=== PATIENT | male | born 1945 | race Caucasian/White ===

== ENCOUNTER 2019-04-29 05:26 | Day surgery (SDC) | payer BC, MEDICARE ==
[2019-04-29] MEDS ORDERED: ceFAZolin 2 GM in Premix Bag 1 BAG IV ONE (06:00)
[2019-04-29] MEDS ORDERED: Gabapentin 300 MG Cap PO ONE (06:00)
[2019-04-29] MEDS ORDERED: Acetaminophen 500 MG Tab PO ONE (06:00)
[2019-04-29] MEDS ORDERED: Dextrose 5%-Lactated Ringers 1,000 ML IV SCH (06:00)
[2019-04-29] MEDS ORDERED: Lidocaine 1% with EPINEPHrine 1:100,000 50 ML MDV ONE (06:29)
[2019-04-29] MEDS ORDERED: Bupivacaine 0.5% 50 ML MDV ONE (06:29)
[2019-04-29] MEDS ORDERED: Propofol 200 MG/20 ML SDV ONE (06:50)
[2019-04-29] MEDS ORDERED: fentaNYL 100 MCG/2 ML SDV ONE (06:50)
[2019-04-29] MEDS ORDERED: Midazolam 1 MG/ML 2 ML SDV ONE (06:50)
[2019-04-29] MEDS ORDERED: Ketorolac 60 MG/2 ML SDV ONE (08:21)
[2019-04-29] MEDS ORDERED: Acetaminophen/HYDROcodone 325-5 MG Tab PO PRN (09:21)
[2019-04-29 10:25] VITALS: BP 115/54; PULSE 47
--- NOTE | 2019-05-04 14:56 | OR ---
DATE OF PROCEDURE: 04/29/2019 SURGEON: Nigel Tadeo MD PREOPERATIVE DIAGNOSIS: Right inguinal hernia. POSTOPERATIVE DIAGNOSES: 1. Direct right inguinal hernia. 2. Right ilioinguinal nerve and iliohypogastric nerves at risk for scar entrapment postoperative. OPERATIVE PROCEDURES: Right inguinal exploration with, 1. Repair of right inguinal hernia with mesh plug technique (78487). 2. Excision of a portion of right ilioinguinal nerve (07433). 3. Excision of a portion of right iliohypogastric nerve (97913). ANESTHESIA: Local plus IV sedation. INDICATION FOR PROCEDURE: This is a 73-year-old presenting with increasingly symptomatic right inguinal hernia plan is to proceed with a mesh plug repair potential risks of the procedure including bleeding, infection, injury to underlying viscera, problems with the hernia recurring or the mesh becoming infected were reviewed, and will often divide the nares and the area to avoid problems with a scar entrapment and chronic pain associated with that which will result in an area of cutaneous anesthesia and around the area of the incision was also reviewed with the patient and he wishes to proceed. DETAILS OF PROCEDURE: The patient was taken to the operating room and placed in a supine position. After IV sedation was administered, the abdomen and groin areas were prepped and draped. The right inguinal area was anesthetized with 1% lidocaine mixed with Marcaine and a standard right inguinal incision made and carried down through the skin subcutaneous tissue and through the external oblique aponeurosis. The subaponeurotic flaps were then raised superiorly and inferiorly and the cord structures were mobilized upward. The patient noted to have multiorgan ilioinguinal nerve and iliohypogastric nerves within the field where the flat portion of mesh plug system would be placed and would be at risk for scar entrapment and chronic pain postoperatively given this a portion of each of those nerves was excised with the excision extending out to the far lateral aspect of the incision. The cord was inspected and dissected out. No indirect hernia was identified. The patient did have a fairly broad-based direct hernia as the transversalis fascia overlying this was incised and reflected downward and dissection was continued bluntly underneath the conjoint tendon laterally, superiorly, and inferiorly. An extra large mesh plug was then placed into the defect and affixed to the Barry's ligament with titanium tacking screws and the underside of the conjoint tendon medially, superiorly, and laterally with horizontal mattress sutures of 2-0 Vicryl stitch. At that point, the flat portion of mesh plug system was placed across the inguinal floor. It was affixed to pubic tubercle with a titanium tacking screw and fixed lateral to the cord structures with a 4-0 Vicryl stitch over this and the external oblique aponeurosis was then approximated with some 3-0 Vicryl stitch as was Elizabeth's fascia and the skin was closed with 4-0 Vicryl subcuticular stitch. Dressing was applied. The patient was taken to the recovery room in satisfactory condition. There were no complications. Nigel Tadeo MD /[id number]
== END 2019-04-29 10:53 | disposition home or self-care (01) ==
LOC: JP.SDS 05:26
PROVIDERS: ATTEND Surgery
DX: K40.90 Unilateral inguinal hernia, without obstruction or gangrene, not specified as recurrent (principal); G57.81 Other specified mononeuropathies of right lower limb; Z88.8 Allergy status to other drugs, medicaments and biological substances
CPT/HCPCS: 88302; A9270-GY; C1713; C1781; J0690; J1885; J2250; J2704; J3010; J3490; J7121

== ENCOUNTER 2023-04-08 02:04 | Emergency (ER) | payer BC, MEDICARE ==
[2023-04-08 02:33] VITALS: BP 138/78; PULSE 92
[2023-04-08] MEDS: Albuterol/Ipratropium 3.0-0.5 MG/3 ML Neb Soln NEB ONE (02:51)
[2023-04-08 02:52] LABS: BASOPHILS ABSOLUTE AUTO 0.07 K/uL (0.00-0.10); BASOPHILS PERCENT AUTO 0.6 % (0.1-1.3); EOSINOPHILS ABSOLUTE AUTO 0.61 K/uL (0.00-0.40); HEMATOCRIT 31.7 % (38.4-49.7); HEMOGLOBIN 10.9 g/dL (12.9-16.9); IMMATURE GRAN ABSOLUTE AUTO 0.08 K/uL (0.00-0.23); IMMATURE GRAN PERCENT AUTO 0.7 % (0.0-0.7); LYMPHOCYTES ABSOLUTE AUTO 0.99 K/uL (0.8-3.3); LYMPHOCYTES PERCENT AUTO 8.2 % (11.4-47.7); MEAN CORPUSCULAR HEMOGLOBIN 28.9 pg (31.6-35.5); MEAN CORPUSCULAR HGB CONC 34.4 g/dL (31.6-35.5); MEAN CORPUSCULAR VOLUME 84.1 fL (81.4-99.0); MONOCYTES ABSOLUTE AUTO 1.04 K/uL (0.20-0.90); MONOCYTES PERCENT AUTO 8.6 % (3.3-12.6); NEUTROPHILS ABSOLUTE AUTO 9.32 K/uL (1.0-7.6); NEUTROPHILS PERCENT AUTO 76.9 % (40.0-78.1); PLATELET COUNT,PLT 309 K/uL (130-375); RED BLOOD CELL COUNT 3.77 M/uL (4.14-5.76); WHITE BLOOD CELL COUNT,WBC 12.1 K/uL (3.2-11.0)
[2023-04-08 03:10] LABS: ANION GAP 10.9 mmol/L (5.0-14.0); C-REACTIVE PROTEIN 6.97 mg/dL (<0.50); CALCIUM 8.3 mg/dL (8.5-10.1); EST CRCL DRUG DOSING (CG) 55.52 mL/min; POTASSIUM,K 3.6 mmol/L (3.6-5.2)
== END 2023-04-08 04:16 | disposition home or self-care (01) ==
LOC: JP.ED 02:04
DX: J18.9 Pneumonia, unspecified organism (principal); I10 Essential (primary) hypertension; Z91.048 Other nonmedicinal substance allergy status; Z88.8 Allergy status to other drugs, medicaments and biological substances; E78.00 Pure hypercholesterolemia, unspecified; Z87.891 Personal history of nicotine dependence; Z79.899 Other long term (current) drug therapy; Z79.82 Long term (current) use of aspirin
CPT/HCPCS: 36415; 71046; 71046-26; 80048; 85025; 86140; 94640; 99285; J7620

== ENCOUNTER 2023-05-27 18:15 | Emergency (ER) | payer BC, MEDICARE ==
[2023-05-27 18:56] LABS: BASOPHILS ABSOLUTE AUTO 0.06 K/uL (0.00-0.10); BASOPHILS PERCENT AUTO 0.7 % (0.1-1.3); EOSINOPHILS ABSOLUTE AUTO 0.32 K/uL (0.00-0.40); EOSINOPHILS PERCENT AUTO 3.5 % (0.0-5.4); HEMATOCRIT 32.4 % (38.4-49.7); HEMOGLOBIN 10.9 g/dL (12.9-16.9); IMMATURE GRAN ABSOLUTE AUTO 0.04 K/uL (0.00-0.23); IMMATURE GRAN PERCENT AUTO 0.4 % (0.0-0.7); LYMPHOCYTES ABSOLUTE AUTO 0.99 K/uL (0.8-3.3); LYMPHOCYTES PERCENT AUTO 10.8 % (11.4-47.7); MEAN CORPUSCULAR HEMOGLOBIN 27.6 pg (31.6-35.5); MEAN CORPUSCULAR HGB CONC 33.6 g/dL (31.6-35.5); MONOCYTES ABSOLUTE AUTO 1.11 K/uL (0.20-0.90); MONOCYTES PERCENT AUTO 12.2 % (3.3-12.6); NEUTROPHILS ABSOLUTE AUTO 6.61 K/uL (1.0-7.6); NEUTROPHILS PERCENT AUTO 72.4 % (40.0-78.1); PLATELET COUNT,PLT 281 K/uL (130-375); RED BLOOD CELL COUNT 3.95 M/uL (4.14-5.76); WHITE BLOOD CELL COUNT,WBC 9.1 K/uL (3.2-11.0)
[2023-05-27] MEDS: Sodium Chloride 0.9% 1,000 ML IV ONE (18:59)
[2023-05-27 19:10] LABS: A/G RATIO 0.8 (1.2-2.2); ALANINE AMINOTRANSFERASE,ALT 17 U/L (12-78); ALBUMIN 3.1 g/dL (3.4-5.0); ALKALINE PHOSPHATASE 75 U/L (46-116); ASPARTATE AMNIOTRANSFERASE,AST 20 U/L (15-37); BILIRUBIN TOTAL 0.5 mg/dL (0.2-1.0); BLOOD UREA NITROGEN,BUN 15 mg/dL (7-18); CARBON DIOXIDE,CO2 25 mmol/L (21-32); CHLORIDE,CL 104 mmol/L (100-108); CREATININE 1.1 mg/dL (0.8-1.3); ESTIMATED GFR 70 mL/min (>60); GLUCOSE RANDOM 126 mg/dL (74-106); SODIUM,NA 139 mmol/L (140-148)
[2023-05-27] MEDS: Albuterol/Ipratropium 3.0-0.5 MG/3 ML Neb Soln NEB ONE ×2 (20:05→21:41)
[2023-05-27] MEDS: methylPREDNISolone Sodium Succinate 125 MG/2 ML SDV IVPUSH ONE (20:06)
[2023-05-27 20:39] VITALS: BP 133/58; PULSE 76
== END 2023-05-27 21:53 | disposition home or self-care (01) ==
LOC: JP.ED 18:15
DX: J44.1 Chronic obstructive pulmonary disease with (acute) exacerbation (principal); J18.9 Pneumonia, unspecified organism; E78.00 Pure hypercholesterolemia, unspecified; I10 Essential (primary) hypertension; Z86.19 Personal history of other infectious and parasitic diseases; Z87.891 Personal history of nicotine dependence; Z79.51 Long term (current) use of inhaled steroids; Z79.899 Other long term (current) drug therapy; Z88.8 Allergy status to other drugs, medicaments and biological substances; Z91.048 Other nonmedicinal substance allergy status
CPT/HCPCS: 36415; 71046; 80053; 83605; 85025; 94640; 96361; 96374; 99285; J2930; J7030; J7620

== ENCOUNTER 2024-02-02 15:56 | Inpatient (IN) | payer BC, MEDICARE ==
[2024-02-02 16:55] LABS: BASOPHILS ABSOLUTE AUTO 0.03 K/uL (0.00-0.10); BASOPHILS PERCENT AUTO 0.5 % (0.1-1.3); EOSINOPHILS ABSOLUTE AUTO 0.06 K/uL (0.00-0.40); HEMATOCRIT 35.6 % (38.4-49.7); HEMOGLOBIN 12.1 g/dL (12.9-16.9); IMMATURE GRAN PERCENT AUTO 0.3 % (0.0-0.7); LYMPHOCYTES ABSOLUTE AUTO 0.23 K/uL (0.8-3.3); MEAN CORPUSCULAR HEMOGLOBIN 27.5 pg (31.6-35.5); MEAN CORPUSCULAR VOLUME 80.9 fL (81.4-99.0); MONOCYTES PERCENT AUTO 13.8 % (3.3-12.6); NEUTROPHILS ABSOLUTE AUTO 4.65 K/uL (1.0-7.6); NEUTROPHILS PERCENT AUTO 80.4 % (40.0-78.1); PLATELET COUNT,PLT 138 K/uL (130-375); WHITE BLOOD CELL COUNT,WBC 5.8 K/uL (3.2-11.0)
[2024-02-02 16:57] LABS: IMMATURE GRAN ABSOLUTE AUTO 0.02 K/uL (0.00-0.23)
[2024-02-02 17:16] LABS: A/G RATIO 0.9 (1.2-2.2); ALANINE AMINOTRANSFERASE,ALT 25 U/L (12-78); ALBUMIN 3.4 g/dL (3.4-5.0); ALKALINE PHOSPHATASE 73 U/L (46-116); ASPARTATE AMNIOTRANSFERASE,AST 35 U/L (15-37); BILIRUBIN TOTAL 0.4 mg/dL (0.2-1.0); BLOOD UREA NITROGEN,BUN 15 mg/dL (7-18); C-REACTIVE PROTEIN 2.18 mg/dL (<0.50); CALCIUM 8.5 mg/dL (8.5-10.1); CARBON DIOXIDE,CO2 28 mmol/L (21-32); CHLORIDE,CL 101 mmol/L (100-108); CREATININE 1.2 mg/dL (0.8-1.3); ESTIMATED GFR 63 mL/min (>60); GLUCOSE RANDOM 113 mg/dL (74-106); MAGNESIUM 1.7 mg/dL (1.8-2.4); POTASSIUM,K 4.1 mmol/L (3.6-5.2); PROTEIN TOTAL,TP 7.2 g/dL (6.4-8.2); SODIUM,NA 137 mmol/L (140-148)
[2024-02-02 17:18] LABS: ANION GAP 12.1 mmol/L (5.0-14.0)
[2024-02-02] MEDS: Albuterol/Ipratropium 3.0-0.5 MG/3 ML Neb Soln NEB ONE (17:53)
[2024-02-02] MEDS: methylPREDNISolone Sodium Succinate 125 MG/2 ML SDV IVPUSH ONE (17:53)
[2024-02-02] MEDS: Oseltamivir 75 MG Cap PO SCH (19:16)
[2024-02-02] MEDS ORDERED: oxyCODONE 5 MG Tab PO PRN (20:45)
[2024-02-02] MEDS ORDERED: Albuterol 0.083% 2.5 MG/3 ML Neb Soln NEB PRN (20:45)
[2024-02-02] MEDS ORDERED: Naloxone 0.4 MG/ML SDV IVPUSH PRN (20:45)
[2024-02-02] MEDS ORDERED: Enoxaparin 30 MG/0.3 ML Syringe SUBCUT SCH (20:45)
[2024-02-02] MEDS ORDERED: Gabapentin 100 MG Cap PO PRN (20:45)
[2024-02-02] MEDS ORDERED: LORazepam 2 MG/ML SDV IV PRN (20:45)
[2024-02-02] MEDS ORDERED: Benzonatate 100 MG Cap PO PRN (20:45)
[2024-02-02] MEDS ORDERED: Acetaminophen 325 MG Tab PO PRN (20:45)
[2024-02-02] MEDS: Codeine/guaiFENesin 10-100 MG/5 ML Syrup 5 ML Cup PO PRN (21:16)
[2024-02-02] MEDS: Nicotine 21 MG/24 Hr Patch TOP SCH (21:16)
[2024-02-02] MEDS: Enoxaparin 40 MG/0.4 ML Syringe SUBCUT SCH (21:17)
[2024-02-02] MEDS: Morphine 2 MG/ML SYRINGE IVPUSH PRN (21:17)
[2024-02-02] MEDS: Pantoprazole 40 MG Vial IVPUSH SCH (21:18)
[2024-02-02] MEDS: Sodium Chloride 0.9% 1,000 ML IV SCH (21:33)
[2024-02-03] MEDS: Albuterol/Ipratropium 3.0-0.5 MG/3 ML Neb Soln NEB SCH (00:21)
[2024-02-03] MEDS: methylPREDNISolone Sodium Succinate 40 MG/1 ML SDV IVPUSH SCH (00:23)
[2024-02-03 05:14] LABS: HEMATOCRIT 33.6 % (38.4-49.7); HEMOGLOBIN 11.5 g/dL (12.9-16.9); IMMATURE GRAN PERCENT AUTO 0.2 % (0.0-0.7); LYMPHOCYTES ABSOLUTE AUTO 0.23 K/uL (0.8-3.3); LYMPHOCYTES PERCENT AUTO 5.5 % (11.4-47.7); MEAN CORPUSCULAR HEMOGLOBIN 27.4 pg (31.6-35.5); MEAN CORPUSCULAR HGB CONC 34.2 g/dL (31.6-35.5); MEAN CORPUSCULAR VOLUME 80.2 fL (81.4-99.0); MONOCYTES ABSOLUTE AUTO 0.13 K/uL (0.20-0.90); MONOCYTES PERCENT AUTO 3.1 % (3.3-12.6); NEUTROPHILS ABSOLUTE AUTO 3.79 K/uL (1.0-7.6); NEUTROPHILS PERCENT AUTO 91.2 % (40.0-78.1); PLATELET COUNT,PLT 145 K/uL (130-375); RED BLOOD CELL COUNT 4.19 M/uL (4.14-5.76); WHITE BLOOD CELL COUNT,WBC 4.2 K/uL (3.2-11.0)
[2024-02-03 05:25] LABS: IMMATURE GRAN ABSOLUTE AUTO 0.01 K/uL (0.00-0.23)
[2024-02-03 05:30] LABS: CALCIUM 8.1 mg/dL (8.5-10.1); EST CRCL DRUG DOSING (CG) 52.46 mL/min
[2024-02-03] MEDS: Oseltamivir 75 MG Cap PO SCH (08:21)
[2024-02-03] MEDS: Cyanocobalamin (Vitamin B12) 1,000 MCG Tab PO SCH (08:21)
[2024-02-03] MEDS: amLODIPine 5 MG Tab PO SCH (08:21)
[2024-02-03] MEDS: Nicotine 21 MG/24 Hr Patch TRDERM SCH (08:21)
[2024-02-03] MEDS: Oseltamivir 6 MG/ML Susp 60 ML Bot PO SCH (08:44)
[2024-02-03] MEDS ORDERED: Oseltamivir 30 MG Cap PO SCH (09:00)
[2024-02-03] MEDS ORDERED: Oseltamivir 75 MG Cap PO SCH (09:00)
[2024-02-03] MEDS ORDERED: Nicotine Polacrilex 2 MG Gum CHEW PRN (11:29)
[2024-02-03] MEDS: Polyethylene Glycol 3350 Powder 17 GM Packet PO ONE ×2 (11:45→12:00)
[2024-02-03] MEDS: Nicotine 7 MG/24 Hr Patch TRDERM SCH (11:45)
[2024-02-03] MEDS: Oseltamivir 30 MG Cap PO SCH (20:21)
[2024-02-04 05:24] VITALS: PULSE 89
[2024-02-04 05:39] LABS: HEMATOCRIT 33.4 % (38.4-49.7); HEMOGLOBIN 11.4 g/dL (12.9-16.9); IMMATURE GRAN ABSOLUTE AUTO 0.03 K/uL (0.00-0.23); IMMATURE GRAN PERCENT AUTO 0.4 % (0.0-0.7); LYMPHOCYTES ABSOLUTE AUTO 0.43 K/uL (0.8-3.3); LYMPHOCYTES PERCENT AUTO 5.8 % (11.4-47.7); MEAN CORPUSCULAR HEMOGLOBIN 27.4 pg (31.6-35.5); MEAN CORPUSCULAR HGB CONC 34.1 g/dL (31.6-35.5); MEAN CORPUSCULAR VOLUME 80.3 fL (81.4-99.0); MONOCYTES ABSOLUTE AUTO 0.83 K/uL (0.20-0.90); MONOCYTES PERCENT AUTO 11.2 % (3.3-12.6); NEUTROPHILS PERCENT AUTO 82.6 % (40.0-78.1); PLATELET COUNT,PLT 156 K/uL (130-375); RED BLOOD CELL COUNT 4.16 M/uL (4.14-5.76); WHITE BLOOD CELL COUNT,WBC 7.4 K/uL (3.2-11.0)
[2024-02-04 05:53] LABS: CALCIUM 8.2 mg/dL (8.5-10.1); EST CRCL DRUG DOSING (CG) 52.46 mL/min; POTASSIUM,K 4.3 mmol/L (3.6-5.2)
[2024-02-04 05:58] LABS: ANION GAP 10.3 mmol/L (5.0-14.0)
[2024-02-04] MEDS: predniSONE 20 MG Tab PO SCH (08:46)
[2024-02-04] MEDS ORDERED: Sodium Chloride 0.9% 10 ML Syringe IV PRN (10:11)
[2024-02-04 11:24] VITALS: BP 149/77
== END 2024-02-04 13:04 | disposition home or self-care (01) | DRG 140 ==
LOC: JP.ED 15:56 → JP.MS 19:46 → OBSVTOIN 02-03 08:38
PROVIDERS: ADMIT Hospitalist; ATTEND Internal Medicine
DX: J44.1 Chronic obstructive pulmonary disease with (acute) exacerbation (principal); J96.01 Acute respiratory failure with hypoxia; C34.32 Malignant neoplasm of lower lobe, left bronchus or lung; J10.1 Influenza due to other identified influenza virus with other respiratory manifestations; E78.00 Pure hypercholesterolemia, unspecified; M19.90 Unspecified osteoarthritis, unspecified site; F15.90 Other stimulant use, unspecified, uncomplicated; F12.90 Cannabis use, unspecified, uncomplicated; Z87.891 Personal history of nicotine dependence; Z85.118 Personal history of other malignant neoplasm of bronchus and lung; Z88.8 Allergy status to other drugs, medicaments and biological substances; Z91.09 Other allergy status, other than to drugs and biological substances; Z79.1 Long term (current) use of non-steroidal anti-inflammatories (NSAID); Z79.2 Long term (current) use of antibiotics; Z79.82 Long term (current) use of aspirin; Z87.81 Personal history of (healed) traumatic fracture; Z98.49 Cataract extraction status, unspecified eye; Z79.51 Long term (current) use of inhaled steroids; Z79.899 Other long term (current) drug therapy; Z79.02 Long term (current) use of antithrombotics/antiplatelets
CPT/HCPCS: 36415; 71046; 80048; 80053; 83735; 84145; 85025; 86140; 87428-QW; 94640; 96361; 96372; 96374; 96375; 96376; 99222; 99232; 99238; 99285; 99285-25; A9270-GY; G0378; J1650; J2270; J2470; J2919; J7030; J7512; J7620